=== PATIENT | female | born 1975 | race Caucasian/White ===

== ENCOUNTER → 2021-05-12 09:14 | Outpatient (CLI) | payer OTHER, SELFPAY ==
--- NOTE | ~2021-05-12 | MMUS_ITS ---
EXAMINATION: MM diagnostic jimi BI w queta, US breast BI complete HISTORY: Right breast pain/tenderness over right breast scar in April; no pain reported today. TECHNIQUE: Full field and spot ML, MLO and craniocaudal 3-D tomosynthesis images of both breasts were performed and synthetic 2-D images were generated. CAD analysis was submitted and interpreted. High resolution complete bilateral breast ultrasound was performed. COMPARISON: 05/21/2019 bilateral digital screening mammogram examination 08/13/2017 diagnostic right mammogram and limited right breast ultrasound examination 08/01/2017 bilateral digital screening mammogram BREAST PARENCHYMAL COMPOSITION: The breasts are heterogeneously dense, which may obscure small masses . FINDINGS: MAMMOGRAPHIC FINDINGS: Approximately 6.5 mm circumscribed low-density opacity is noted anteriorly in the mid to lower inner quadrant of the left breast, having benign mammographic appearance including halo sign. No suspicious mass, architectural distortion, malignant calcification, skin thickening or retraction of either breast is detected. ULTRASOUND: Left breast: Corresponding to the 6.5 mm mammographic opacity in the mid to lower inner quadrant of left breast is a 4.3 x 6.1 x 6.7 mm simple cyst at 9:00 3 cm from the nipple. 3:00 4 cm from nipple: Parallel circumscribed 1.4 x 4.1 x 4.2 mm sonolucency consistent with small cy st. Right breast: 3:00 3 cm from nipple: 2.7 x 3.6 x 4.3 mm simple cyst 5:00 1 cm from nipple: Septated 3 x 4.8 mm cyst IMPRESSION: 1. No mammographic evidence of malignancy 2. Routine mammographic screening is recommended BI-RADS Category 2: Benign finding(s). Reviewed, dictated and finalized at location A. IMPRESSION: 1. No mammographic evidence of malignancy 2. Routine mammographic screening is recommended BI-RADS Category 2: Benign finding(s).
== END ==
PROVIDERS: PCP Family Medicine; Visit Provider Nurse Practitioner
DX: N64.4 Mastodynia (principal); N60.11 Diffuse cystic mastopathy of right breast
CPT/HCPCS: 76641; 77062; 77066; G0279

== ENCOUNTER 2023-04-12 10:01 | Outpatient (CLI) | payer OTHER, SELFPAY ==
--- NOTE | ~2023-04-12 | MM_ITS ---
EXAMINATION: MM screening jimi BI w queta HISTORY: Screening mammogram TECHNIQUE: Craniocaudal and mediolateral oblique 3-D tomosynthesis images were obtained and synthetic 2-D images were generated. CAD analysis was submitted and interpreted. COMPARISON: 05/12/2021 diagnostic bilateral mammogram and complete bilateral breast ultrasound examina tion 05/21/2019 bilateral screening mammogram BREAST PARENCHYMAL COMPOSITION: The breasts are heterogeneously dense, which may obscure small masses . FINDINGS: There is no evidence of suspicious mass, calcification, or architectural distortion to sugg est malignancy in either breast. There has been no suspicious interval change. IMPRESSION: 1. No mammographic evidence of malignancy. 2. Recommend routine screening mammography in one year. BI-RADS Category 1: Negative Reviewed, dictated and finalized at location A.
== END 2023-04-12 10:02 ==
PROVIDERS: PCP Family Medicine; Visit Provider Advanced Practice Midwife
DX: Z12.31 Encounter for screening mammogram for malignant neoplasm of breast (principal)
CPT/HCPCS: 77063; 77067

== ENCOUNTER 2024-05-11 14:46 | Outpatient (CLI) | payer OTHER, SELFPAY ==
--- NOTE | ~2024-05-11 | MM_ITS ---
EXAMINATION: MM screening jimi BI w queta HISTORY: Screening TECHNIQUE: Craniocaudal and mediolateral oblique 3-D tomosynthesis images were obtained and synthetic 2-D images were generated. CAD analysis was submitted and interpreted. COMPARISON: Comparison to multiple prior studies sequentially, with oldest reviewed study dated 06/2017. BREAST PARENCHYMAL COMPOSITION: Dense: The breasts are heterogeneously dense, which may obscure small masses FINDINGS: There is no evidence of suspicious mass, calcification, or architectural distortion to sugg est malignancy in either breast. There has been no suspicious interval change. IMPRESSION: 1. No mammographic evidence of malignancy. 2. Recommend routine screening mammography in one year. BI-RADS Category 1: Negative Reviewed, dictated and finalized at location B.
== END 2024-05-11 14:47 ==
PROVIDERS: PCP Advanced Practice Midwife; Visit Provider Advanced Practice Midwife
DX: Z12.31 Encounter for screening mammogram for malignant neoplasm of breast (principal)
CPT/HCPCS: 77063; 77067

== ENCOUNTER 2025-05-13 10:56 | Outpatient (CLI) | payer OTHER, SELFPAY ==
--- NOTE | ~2025-05-13 | MM_ITS ---
EXAMINATION: MM screening jimi BI w queta HISTORY: Screening TECHNIQUE: Craniocaudal and mediolateral oblique 3-D tomosynthesis images were obtained and synthetic 2-D images were generated. CAD analysis was submitted and interpreted. COMPARISON: Comparison to multiple prior studies sequentially, with oldest reviewed study dated 07/15. BREAST PARENCHYMAL COMPOSITION: Dense: The breasts are heterogeneously dense, which may obscure small masses FINDINGS: There is no evidence of suspicious mass, calcification, or architectural distortion to sugg est malignancy in either breast. There has been no suspicious interval change. IMPRESSION: 1. No mammographic evidence of malignancy. 2. Recommend routine screening mammography in one year. BI-RADS Category 1: Negative Reviewed, dictated and finalized at location B.
== END 2025-05-13 10:57 | disposition home or self-care (01) ==
LOC: MICIMG 10:57
PROVIDERS: PCP Obstetrics & Gynecology Gynecology; Visit Provider Obstetrics & Gynecology Gynecology
DX: Z12.31 Encounter for screening mammogram for malignant neoplasm of breast (principal)
CPT/HCPCS: 77063; 77067